=== PATIENT | female | born 1960 ===

== ENCOUNTER 2019-11-22 08:27 | Outpatient (CLI) | payer OTHER, SELFPAY | END 2019-11-22 08:28 | disposition home or self-care (01) | LOC: ANHAUDIO 08:30 | DX: H90.3 Sensorineural hearing loss, bilateral (principal) | CPT/HCPCS: 92557; 92567 ==

== ENCOUNTER 2020-01-03 07:49 | Outpatient (RCR) | payer OTHER, SELFPAY | END 2020-01-03 23:59 | disposition home or self-care (01) | LOC: ANHAUDIO 07:49 | DX: Z46.1 Encounter for fitting and adjustment of hearing aid (principal); H90.3 Sensorineural hearing loss, bilateral | CPT/HCPCS: V5160; V5261 ==